=== PATIENT | male | born 1955 | race Caucasian/White ===

== ENCOUNTER → 2022-04-13 | Day surgery (SDC) | payer MEDICARE, OTHER ==
[~2022-04-13] VITALS: Ht 188 cm; Wt 100.3 kg
[~2022-04-13] MED LIST: ATORVASTATIN CA80 MG PO; CARVEDILOL 25MG25 MG PO; CLOPIDOGREL75 MG PO; LASIX40 MG PO; LEVEMIR FL100 UNIT/1 SC; LISINOPRIL5 MG PO; METFORMIN HCL1000 MG PO; XARELTO20 MG PO
[2022-04-13 09:06] LABS: HCT 40.9 % (42.0-52.0); HGB 13.5 g/dl (13.2-18.0); MCH 30.1 pg (25.0-31.0); MCV 91.1 fL (78.0-100.0); MPV 9.1 fL (6.0-9.5); RBC 4.49 M/uL (4.70-6.00); RDW 13.1 % (11.5-14.0); WBC 8.8 K/uL (4.0-10.5)
[2022-04-13 09:50] LABS: ALBUMIN 3.6 g/dL (3.4-5.0); BUN/CREAT RATIO (CALC) 19.3 RATIO; CREATININE 1.14 mg/dL (0.67-1.17); GLOBULIN (CALCULATION) 3.2 g/dL; POTASSIUM 4.3 mmol/L (3.5-5.1); TOTAL PROTEIN 6.8 g/dL (6.4-8.2)
== END | disposition home or self-care (01) ==
LOC: FAS 04-10 08:30
PROVIDERS: Surgery
DX: Z12.11 Encounter for screening for malignant neoplasm of colon (principal); K63.5 Polyp of colon; Z86.010 Personal history of colon polyps; I10 Essential (primary) hypertension; E11.9 Type 2 diabetes mellitus without complications; E78.5 Hyperlipidemia, unspecified; I48.91 Unspecified atrial fibrillation; I25.2 Old myocardial infarction; Z95.5 Presence of coronary angioplasty implant and graft; Z87.891 Personal history of nicotine dependence; Z79.84 Long term (current) use of oral hypoglycemic drugs; Z79.01 Long term (current) use of anticoagulants; Z79.899 Other long term (current) drug therapy; Z88.8 Allergy status to other drugs, medicaments and biological substances
CPT/HCPCS: 36415; 80053; J2704; J7120